=== PATIENT | female | born 1965 | race African-American/Black ===

== ENCOUNTER 2017-03-25 09:36 | Day surgery (SDC) | payer BC ==
[~2017-03-25] VITALS: Ht 152.4 cm; Wt 107.0 kg
[~2017-03-25 09:36] MED LIST: ALEVE220 M2 PO; PERCOCET 5/31 TABLET PO
[2017-03-25 10:14] VITALS: BP 168/77
[2017-03-25] MEDS ORDERED: NORCO 5/3251 TABLET PO (14:32)
[2017-03-25] MEDS ORDERED: MOTRIN800 MG PO (14:32)
[2017-03-25 15:52] VITALS: BP 149/98
[2017-03-25 16:50] VITALS: BP 174/83
[2017-03-25 17:43] VITALS: BP 169/85
== END 2017-03-25 17:55 | disposition home or self-care (01) ==
LOC: SDC 09:36
PROC: 0UDB8ZX Extraction of Endometrium, Via Natural or Artificial Opening Endoscopic, Diagnostic (ICD-10-PCS; principal; 2017-03-25)
DX: R93.8 Abnormal findings on diagnostic imaging of other specified body structures (principal); Z85.3 Personal history of malignant neoplasm of breast; Z79.810 Long term (current) use of selective estrogen receptor modulators (SERMs); N95.0 Postmenopausal bleeding; I10 Essential (primary) hypertension; E66.01 Morbid (severe) obesity due to excess calories; Z68.42 Body mass index [BMI] 45.0-49.9, adult; Z83.49 Family history of other endocrine, nutritional and metabolic diseases
CPT/HCPCS: 88305; J0131; J1100; J1170; J1885; J2250; J2405; J3010